=== PATIENT | female | born 1995 | race Caucasian/White ===

== ENCOUNTER 2021-09-21 16:56 | Emergency (ER) | payer OTHER, SELFPAY ==
[~2021-09-21] VITALS: Ht 165.1 cm; Wt 61.2 kg
[2021-09-21 16:56] VITALS: BP_SYST 117
[2021-09-21] MEDS ORDERED: DEC4 PO (19:14)
[2021-09-21] MEDS ORDERED: VITD2000 PO (19:14)
[2021-09-21] MEDS ORDERED: ZINC50TA69 PO (19:14)
[2021-09-21 19:15] LABS: BILIRUBIN,URINE NEGATIVE (NEGATIVE); CLARITY/URINE SL CLOUDY (CLEAR); COLOR,URINE YELLOW (YELLOW); GLUCOSE,URINE NEGATIVE (NEGATIVE); KETONES,URINE NEGATIVE (NEGATIVE); LEUKOCYTE ESTERASE ,URINE 2+ (NEGATIVE); NITRITE, URINE NEGATIVE (NEGATIVE); PROTEIN URINE NEGATIVE (NEGATIVE); UROBILINOGEN,URINE 0.2 (0.2-1.0)
[2021-09-21 19:19] VITALS: BP_SYST 114
[2021-09-21 19:31] LABS: BLOOD, URINE TRACE (NEGATIVE)
[2021-09-21 19:37] LABS: BACTERIA,URINE FEW /HPF (None Seen); MUCUS,URINE None Seen /LPF (None Seen)
== END 2021-09-21 19:19 | disposition home or self-care (01) ==
LOC: SED 16:56
DX: U07.1 COVID-19 (principal); Z79.899 Other long term (current) drug therapy
CPT/HCPCS: 36415; 81000; 81025; 87086; 99283

== ENCOUNTER 2022-05-23 20:55 | Emergency (ER) | payer OTHER ==
[~2022-05-23] VITALS: Ht 170.2 cm; Wt 69.4 kg
[~2022-05-23 20:55] MED LIST: DEC4 PO; VITD2000 PO; ZINC50TA69 PO
[2022-05-23 21:08] VITALS: BP_SYST 105
--- NOTE | 2022-05-23 22:00 | NUR ---
Pt brought by self, A&Ox4, pt presents to ER with c/o bodyaches, nausea/ vomiting, also c/o bugbite on L lower leg , pt afebrile, skin pink and warm, cap refill <3, VSS, will cont to monitor.
[2022-05-23 22:29] LABS: BASOPHILS % (AUTO) 0.2 % (0.0-2.0); EOSINOPHILS % (AUTO) 0.5 % (0.0-4.0); HEMATOCRIT 37.7 % (36-48); LYMPHOCYTES % (AUTO) 11.3 % (20.5-51.5); MEAN CORPUSCULAR HEMOGLOBIN 31 pg (27-31); MEAN CORPUSCULAR HGB CONC 34 % (32-36); MEAN CORPUSCULAR VOLUME 89 fL (79.0-98.0); MONOCYTES # (AUTO) 0.8 K/uL (0.0-1.0); MONOCYTES % (AUTO) 8.6 % (1.7-9.3); NEUTROPHILS # (AUTO) 7.3 K/uL (1.8-7.7); NEUTROPHILS % (AUTO) 79.4 % (40.0-70.0); PLATELET COUNT (AUTO) 167 K/uL (130-430); RED BLOOD CELL COUNT(AUTO) 4.24 MIL/uL (4.2-6.2); RED CELL DISTRIBUTION WIDTH 13.3 % (9.0-15.0); WHITE BLOOD COUNT (AUTO) 9.1 K/uL (4.8-10.8)
--- NOTE | 2022-05-23 22:30 | NUR ---
Dr Bartlett evaluating patient in the tent
--- NOTE | 2022-05-23 22:40 | NUR ---
Urine and covid test sent to the lab
[2022-05-23 22:49] LABS: ANION GAP 9 (5-15); CALCIUM 8.6 mg/dL (8.4-11.0); CHLORIDE 102 mmol/L (98-107); CREATININE 0.62 mg/dL (0.55-1.30); GLUCOSE 96 mg/dL (70-99); POTASSIUM 3.5 mmol/L (3.5-5.1); SODIUM SERUM 137 mmol/L (136-145); UREA NITROGEN, BLOOD 12 mg/dL (8-21)
[2022-05-23 22:51] LABS: BILIRUBIN,URINE NEGATIVE (NEGATIVE); BLOOD, URINE NEGATIVE (NEGATIVE); CLARITY/URINE CLEAR (CLEAR); COLOR,URINE YELLOW (YELLOW); GLUCOSE,URINE NEGATIVE (NEGATIVE); KETONES,URINE NEGATIVE (NEGATIVE); LEUKOCYTE ESTERASE ,URINE TRACE (NEGATIVE); NITRITE, URINE NEGATIVE (NEGATIVE); PROTEIN URINE NEGATIVE (NEGATIVE); UROBILINOGEN,URINE 0.2 (0.2-1.0)
[2022-05-23 22:53] LABS: GFR AFRICAN AMERICAN 147 mL/min (>90)
--- NOTE | 2022-05-23 22:54 | NUR ---
Report given to Jacques FITZGERALD
[2022-05-23 22:55] LABS: ALANINE AMINOTRANSFERASE 112 U/L (12-78); ALBUMIN 3.8 g/dL (3.4-4.8); AMYLASE 49 U/L (0-100); ASPARTATE AMINOTRANSFERASE 41 U/L (10-37); LIPASE 147 U/L (73-393); TOTAL BILIRUBIN 0.4 mg/dL (0.0-1.0)
[2022-05-23 22:58] LABS: C-REACTIVE PROTEIN QUANT < 0.2 mg/dL (0-0.5)
[2022-05-23 23:27] LABS: BACTERIA,URINE FEW /HPF (None Seen); RBC,URINE NONE SEEN /HPF (0-3); WBC,URINE 0-3 /HPF (0-3)
[2022-05-23 23:28] LABS: MUCUS,URINE None Seen /LPF (None Seen)
[2022-05-24] MEDS ORDERED: ONDA-8 TL (00:55)
[2022-05-24 01:10] VITALS: BP_SYST 105
--- NOTE | 2022-05-24 01:10 | NUR ---
Patient given written and verbal discharge instructions and verbalizes understanding. ER Dr. East discussed with patient the results and treatment provided. Patient in stable condition. ID arm band removed. Rx of zofran given. Patient educated on pain management and to follow up with PMD. Pain Scale 4. Opportunity for questions provided and answered. Medication side effect fact sheet provided.
[2022-05-24] MEDS ORDERED: ACETAMINOPHEN 500 MG TABLET PO ONE (01:15)
== END 2022-05-24 01:10 | disposition home or self-care (01) ==
LOC: SED 20:55
DX: B34.9 Viral infection, unspecified (principal); R10.9 Unspecified abdominal pain; R11.2 Nausea with vomiting, unspecified; R19.7 Diarrhea, unspecified; Z79.899 Other long term (current) drug therapy; Z20.822 Contact with and (suspected) exposure to COVID-19
CPT/HCPCS: 36415; 71045; 80053; 81000; 81025; 82150; 83605; 83690; 84703; 85025; 86140; 99284

== ENCOUNTER 2022-05-26 12:32 | Emergency (ER) | payer OTHER ==
[~2022-05-26] VITALS: Ht 160 cm; Wt 68.9 kg
[2022-05-26 12:32] VITALS: BP_SYST 115
[~2022-05-26 12:32] MED LIST changes: +ONDA-8 TL
--- NOTE | 2022-05-26 12:35 | NUR ---
Patient triaged and placed in waiting room. VSS and patient appears in no acute distress at this time. Accompanied by SELF, awaiting available bed, and MD notified of need for MSE.
--- NOTE | 2022-05-26 13:07 | NUR ---
COVID SWAB OBTAINED, LABELED AND TAKEN TO LAB
== END 2022-05-26 15:32 | disposition left against medical advice (07) ==
LOC: SED 12:32
DX: R51.9 Headache, unspecified (principal); Z20.822 Contact with and (suspected) exposure to COVID-19; Z53.21 Procedure and treatment not carried out due to patient leaving prior to being seen by health care provider
CPT/HCPCS: 36415

== ENCOUNTER 2022-10-18 01:46 | Emergency (ER) | payer OTHER ==
[~2022-10-18] VITALS: Ht 160 cm; Wt 70.3 kg
[2022-10-18 01:55] VITALS: BP_SYST 126
--- NOTE | 2022-10-18 01:55 | NUR ---
Patient triaged and placed in waiting room. VSS and patient appears in no acute distress at this time. Awaiting available bed, and MD notified of need for MSE.
--- NOTE | 2022-10-18 03:18 | NUR ---
ER examining patient in the triage room.
[2022-10-18] MEDS ORDERED: CHLO473M5 PO (03:29)
[2022-10-18] MEDS ORDERED: AUG875 PO (03:29)
[2022-10-18] MEDS ORDERED: IBUP-1970 PO (03:29)
[2022-10-18] MEDS ORDERED: ACET-73 PO (03:29)
[2022-10-18] MEDS ORDERED: AMOXICILLIN/POTASSIUM CLAV 875 MG TABLET PO ONE (03:30)
[2022-10-18] MEDS ORDERED: OXYC-128 PO (03:30)
[2022-10-18] MEDS ORDERED: KETOROLAC TROMETHAMINE 30 MG VIAL IM ONE (03:30)
--- NOTE | 2022-10-18 03:52 | NUR ---
Patient given written and verbal discharge instructions and verbalizes understanding. ER MD discussed with patient the results and treatment provided. Patient in stable condition. ID arm band removed. Rx of Augmentin,tylenol,Ibuprofen,Percocet given. Patient educated on pain management and to follow up with PMD. Pain Scale 4/10. Opportunity for questions provided and answered. Medication side effect fact sheet provided.
[2022-10-18 03:54] VITALS: BP_SYST 121
== END 2022-10-18 03:55 | disposition home or self-care (01) ==
LOC: SED 01:46
DX: K04.7 Periapical abscess without sinus (principal); R68.84 Jaw pain; H92.02 Otalgia, left ear; I10 Essential (primary) hypertension; Z79.899 Other long term (current) drug therapy
CPT/HCPCS: 99283; 96372; J1885